=== PATIENT | female | born 1985 | race Caucasian/White ===

== ENCOUNTER → 2016-06-06 | Outpatient (CLI) | payer BC ==
[~2016-06-06] MED LIST: PRENTAB65 PO
[2016-06-06 21:15] LABS: GTGD 50 Grams
== END | disposition home or self-care (01) ==
LOC: C.LAB1850 15:01
PROVIDERS: ATTEND Obstetrics & Gynecology
DX: Z34.01 Encounter for supervision of normal first pregnancy, first trimester (principal)

== ENCOUNTER → 2016-08-29 | Outpatient (CLI) | payer BC ==
[2016-08-29 15:26] LABS: URINE APPEARANCE CLOUDY (CLEAR); URINE BILIRUBIN NEG (NEG); URINE COLOR YELLOW; URINE EPITHELIAL CELL AUTO 20-30 /lpf (0-5); URINE NITRITE NEG (NEG); URINE PH 7.5 (4.5-7.5); URINE SPECIFIC GRAVITY 1.018 (1.000-1.030); UROBILINOGEN NEG (NEG)
[2016-08-29 15:31] LABS: MANUAL MICROSCOPIC REQUIRED? NO; REVIEW REQ? NO
== END | disposition home or self-care (01) ==
LOC: C.LABSPEC 13:32
PROVIDERS: ATTEND Obstetrics & Gynecology
DX: Z34.92 Encounter for supervision of normal pregnancy, unspecified, second trimester (principal)

== ENCOUNTER → 2016-08-29 | Outpatient (CLI) | payer BC ==
[2016-08-29 13:47] LABS: GTGD 50 Grams
== END | disposition home or self-care (01) ==
LOC: C.LAB1850 10:22
PROVIDERS: ATTEND Obstetrics & Gynecology
DX: Z34.03 Encounter for supervision of normal first pregnancy, third trimester (principal)

== ENCOUNTER → 2016-09-06 | Outpatient (CLI) | payer BC | END | disposition home or self-care (01) | LOC: C.LAB1850 07:04 | PROVIDERS: ATTEND Obstetrics & Gynecology | DX: O28.1 Abnormal biochemical finding on antenatal screening of mother (principal) ==

== ENCOUNTER 2016-11-07 07:18 | Inpatient (IN) | payer BC ==
[~2016-11-07] VITALS: Ht 160 cm; Wt 110.0 kg
[2016-11-07] MEDS ORDERED: LACTATED RINGER'S 1000ML 1,000 ML IV PRN (07:56)
[2016-11-07 08:19] VITALS: BMI 43.0
[2016-11-07] MEDS ORDERED: PRENTAB65 PO (08:22)
[2016-11-07 08:30] LABS: HEMATOCRIT 35.3 % (37-47); MEAN CELL VOLUME 86.5 fL (80-100); MEAN CORPUSCULAR HEMOGLOBIN 28.7 pg (25-34); MEAN CORPUSCULAR HGB CONC 33.1 g/dl (32-36); MEAN PLATELET VOLUME 9.6 fL (7.4-10.4); PLATELET COUNT 262 K/uL (130-400); RED BLOOD COUNT 4.08 M/uL (4.2-5.4); WHITE BLOOD COUNT 10.34 K/uL (4.8-10.8)
[2016-11-07] MEDS: LACTATED RINGER'S 1000ML 1,000 ML IV SCH ×2 (08:50→16:50)
--- NOTE | 2016-11-07 08:54 | Medical Student: [facility] ---
Med Student History & Physical Date of Service Nov 07, 2016. Chief Complaint Check Rupture History of Present Illness Source: patient Maria A is a 30-year-old with an MARIPOSA of 11/21/16 by LMP of 02/15/2016 who presents this morning at 38 weeks gestational age due to SROM. At approximately 0545 she felt her water break. She denies vaginal bleeding and reports movements and some small contractions. Yesterday she was seen in the office for bloody mucus over the weekend. She is planning on receiving an epidural today. Maria A is obese (BMI 43) but otherwise her has had an unremarkable course. 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 Menses typically last for 5 days and is characterized as having a moderate flow. Cycles last 28 days. Pt has a hx of OCP use, which was discontinued in December 2015 when deciding to conceive. She has no history of STIs. Her last Pap smear was in April 2016 at 7+8 wks GA revealing LGSIL. A colposcopy at 14 weeks was negative. Her next colposcopy will be at 6 weeks . Past Medical History Maria A has no chronic conditions that she manages. Her only medication prior to was the OCP but throughout , she has only taken vitamins. Past Surgical History Negative for any surgeries. Family History Maternal aunt has a hx of breast cancer. Maternal grandmother has a hx of NE. Father has hypertrophic cardiomyopathy and brother is prediabetic. 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 She lives in [place] with her . Smoking Status: Never Smoker Smokeless Tobacco Use: No Alcohol Use: occasionally (one drink a month prior to , no EtOH during ) Drug Use: none Marital Status: Housing status: lives with significant other Occupational Status: employed Allergies Coded Allergies: No Known Allergies (Unverified , 11/07/16) Home Medications Multivit-Min W/Fe-Fa (), 1 TAB PO DAILY Review of Systems Constitutional: No fever, No chills Eyes: No worsening of vision Respiratory: No shortness of breath Cardiovascular: No chest pain Abdomen: No nausea, No vomiting, No diarrhea, No constipation Genitourinary - Female: No dysuria Physical Exam General Appearance: WD/WN, no apparent distress Respiratory/Chest: chest non-tender, lungs clear, normal breath sounds, no respiratory distress Cardiovascular: regular rate, rhythm, no edema, no gallop, no murmur Abdomen / GI: normal bowel sounds, soft Fundal Height: 46 cm Extremities: normal inspection, no calf tenderness Maria A was alert and awake during the exam. She was lying comfortably in bed and was in no acute distress. Auscultation of the heart revealed no murmurs, gallops, or rubs. Lungs were clear to auscultation bilaterally. Abdominal exam revealed a gravid, soft, nontender uterus. Fundus measured 46 cm. +FHTs. Estimated weight is 8 lbs. Infant is vertex. Per Dr. Bruno, pelvic exam revealed a cervix that is 1/50/-2. Neuro exam revealed 2/4 DTRs bilaterally with no clonus. Monitoring External Monitor: Baseline heart rate of 125 BPM. Moderate variability. Accels present. Absent decels. Tocodynamometer: Contractions occur every 5 minutes. Laboratory Results 11/07/16 08:11 Test 11/07/16 08:11 11/07/16 08:28 Red Blood Count 4.08 M/uL (4.2-5.4) Mean Corpuscular Volume 86.5 fL (80-100) Mean Corpuscular Hemoglobin 28.7 pg (25-34) Mean Corpuscular Hemoglobin Concent 33.1 g/dl (32-36) RDW Standard Deviation 41.4 fL (36.4-46.3) RDW Coefficient of Variation 12.9 % (11.5-14.5) Mean Platelet Volume 9.6 fL (7.4-10.4) Assessment and Plan Maria A is a 30-year-old female with an MARIPOSA of 11/21/16 by LMP of 02/15/16 who presented at 38 weeks GA for SROM. Her course has been unremarkable. She plans on receiving an epidural. O+, Ab-, rubella immune, GBS positive. heart tracing category I. Expectant management for now. Continue with external heart monitor and tocodynamometer.
[2016-11-07] MEDS ORDERED: PENICILLIN G POTASSIUM IV 6 MU in DEXTROSE 5% 250ML 250 ML IV ONE (09:00)
[2016-11-07 10:08] VITALS: Ht 160 cm; Wt 110.0 kg
[2016-11-07] MEDS ORDERED: EpHEDrine SULFATE INJ 50 MG/ML AMP ONE (12:33)
[2016-11-07] MEDS ORDERED: BUPIVACAINE 0.25% 30 ML VIAL ONE (12:33)
[2016-11-07] MEDS ORDERED: LACTATED RINGER'S 1000ML 500 ML IV PRN ×2 (12:34→13:44)
[2016-11-07] MEDS ORDERED: ONDANSETRON INJ 2 MG/ML 2 ML VIAL IV STA (12:34)
[2016-11-07] MEDS ORDERED: FENTANYL 2MCG/ML ROPIV 1.25MG/ML 100ML BAG EPI ONE (12:34)
[2016-11-07] MEDS ORDERED: FENTANYL CITRATE INJ 50 MCG/1 ML 2 ML VIAL ONE (12:35)
[2016-11-07] MEDS ORDERED: OXYTOCIN 30 UNITS/500ML NSS IV PRN ×2 (12:45→23:15)
[2016-11-07] MEDS: PENICILLIN G POTASSIUM IV 3 MU in DEXTROSE 5% 100ML 100 ML IV PRN ×3 (12:51→21:05)
[2016-11-07] MEDS ORDERED: NALOXONE HCL INJ 1 MG in SODIUM CHLORIDE 0.9% 1000ML 1,000 ML IV PRN ×4 (13:44)
[2016-11-07] MEDS ORDERED: ONDANSETRON INJ 2 MG/ML 2 ML VIAL IV PRN (13:45)
[2016-11-07] MEDS ORDERED: NALOXONE HCL INJ 0.4 MG/1 ML VIAL/CARP IV PRN (13:45)
[2016-11-07] MEDS ORDERED: PROMETHAZINE HCL INJ 25 MG in SODIUM CHLORIDE 0.9% 50ML 50 ML IV PRN (13:45)
[2016-11-07] MEDS ORDERED: DiphenhydrAMINE HCL 50 MG/ML VIAL IV PRN (13:45)
[2016-11-07] MEDS ORDERED: EpHEDrine SULFATE INJ 50 MG/ML AMP IV PRN (13:45)
[2016-11-07] MEDS ORDERED: NALBUPHINE HCL INJ 10 MG/ML AMP IV PRN (13:45)
[2016-11-07] MEDS ORDERED: TERBUTALINE SULFATE 1 MG/ML VIAL SQ ONE (18:00)
[2016-11-07] MEDS: FENTANYL 2MCG/ML ROPIV 1.25MG/ML 100ML BAG EPI PRN ×3 (19:04→22:58)
[2016-11-07] MEDS ORDERED: DIPHTHERIA/TETANUS/PERTUSSIS 0.5 ML SYR/VIAL IM. ONE (23:15)
[2016-11-07] MEDS ORDERED: ACETAMINOPHEN 325 MG TAB PO PRN (23:15)
[2016-11-07] MEDS ORDERED: BENZOCAINE 20% AER SPR 82.5 GM CAN EXT PRN (23:15)
[2016-11-07] MEDS ORDERED: HYDROCORTISONE ACETATE 25 MG SUPP PR PRN (23:15)
[2016-11-07] MEDS ORDERED: SUPERCREAM 0.870 % 15GM JAR EXT PRN (23:15)
[2016-11-07] MEDS ORDERED: LANOLIN OINT EXT PRN ×2 (23:15)
[2016-11-07] MEDS ORDERED: ACETAMINOPHEN/CODEINE 300/30MG TAB PO PRN ×2 (23:15)
--- NOTE | 2016-11-07 23:16 | Vaginal Delivery Summary ---
Vaginal Delivery Summary Patient dilated to complete and pushed to deliver a viable male Apgars 8 and 9 via over a small second-degree perineal laceration. Anterior shoulder delivered and then mouth and nose bulb suctioned at the perineum. Remainder of shoulders and body delivered with ease. Infant vigorous and crying at . Cord clamped at approximately 30 seconds of life. Infant to maternal abdomen and cord doubly clamped and cut. Placenta delivered spontaneously and intact, three-vessel cord. Hemostasis achieved with dilute Pitocin and uterine massage. Cervix and sulci intact. Laceration repaired in the routine fashion using 3-0 Vicryl. EBL 300 cc. Mother and baby stable in recovery.
[2016-11-08] VITALS (7 sets, daily range): BP systolic 114–137; BP diastolic 71–82; PULSE 70–88; TEMP 36.7–36.8; O2SAT 97–98
[2016-11-08] MEDS: OXYTOCIN INJ 20 UNITS in LACTATED RINGER'S 1000ML 1,000 ML IV SCH ×2 (00:43→10:31)
[2016-11-08] MEDS: IBUPROFEN 600 MG TAB PO PRN ×4 (00:45→17:27)
--- NOTE | 2016-11-08 01:17 | Anesthesia Procedure Note ---
Anesthesia Epidural Removal Nt Date & Time Nov 08, 2016 at 01:17 Vital Signs Pain Intensity: 2.0 Notes Mental Status: alert / awake / arousable, participated in evaluation Nausea / Vomiting: adequately controlled Pain: adequately controlled Airway Patency, RR, SpO2: stable & adequate BP & HR: stable & adequate Hydration State: stable & adequate Neuraxial Anesthesia: was administered Anesthetic Complications: no major complications apparent, pt satisfied with anesthetic care Epidural: removed without complications, with tip intact
--- NOTE | 2016-11-08 06:51 | OB/GYN Progress Note ---
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 Subjective conversation w/ patient, conversation w/ family, physical exam, chart review, lab review Ambulation: limited ambulation (to bathroom only) Voiding: no voiding problems Diet Tolerance: Regular Diet Lochia: Moderate (denies clots) Feeding Type: Breast Feeding Pain: Denies pain. Notes: No gas or BM yet. Review of Systems Constitutional: No fever, No chills Respiratory: No cough, No shortness of breath Cardiac: No chest pain Abdomen: No pain, No nausea, No diarrhea, No constipation Says the upper right thigh feels "heavy" but denies distal RLE sx or movement difficulties. Objective Vital Signs Date Time Temp Pulse Resp B/P (MAP) Pulse Ox O2 Delivery O2 Flow Rate FiO2 11/08/16 03:40 36.7 72 20 123/71 (88) 97 Room Air 11/08/16 02:00 36.8 76 20 126/74 (91) 98 Room Air 11/08/16 02:00 98 Room Air Physical Exam General Appearance: WELL-APPEARING, WD/WN, NO APPARENT DISTRESS Respiratory/Chest: lungs clear, normal breath sounds Cardiovascular: regular rate, rhythm, no murmur Abdomen: normal bowel sounds, non tender, soft Fundus: Firm, Relation to Umbilicus (Approx 1 finger down) Extremities: normal range of motion, non-tender, no calf tenderness, + pedal edema (1+ bilaterally) Laboratory Results Last 24 Hours Test 11/07/16 08:11 11/07/16 08:28 White Blood Count 10.34 K/uL Red Blood Count 4.08 M/uL Hemoglobin 11.7 g/dL Hematocrit 35.3 % Mean Corpuscular Volume 86.5 fL Mean Corpuscular Hemoglobin 28.7 pg Mean Corpuscular Hemoglobin Concent 33.1 g/dl RDW Standard Deviation 41.4 fL RDW Coefficient of Variation 12.9 % Platelet Count 262 K/uL Mean Platelet Volume 9.6 fL Amniotic Fluid Protein POS Assessment and Plan Post- Day Number: 1 Continue Routine Care: 30yo s/p , now PPD #1 (delivered around 2300 on 06Jul). - Blood type O pos. GBS positive, s/p abx x2. Rubella immune. - Vital signs reviewed and stable. - Pain controlled with ibuprofen (minimal use). - Minimal leg swelling but no tenderness on calf palpation. Encourage ambulation. - Encourage breast feeding. - Hemoglobin: 11.7. Continue to monitor clinically. - Right lateral thigh "heavy" likely positional vs lingering from epidural. Will monitor. - Continue routine post-vaginal delivery care. - Pt agreed with above plan, all current questions answered. Reyes Stanley MD, PGY1 Electrical Calibrator Physician Supervision Note: I interviewed and examined the patient. Discussed with Dr. Stanley and agree with findings and plan as documented in the note. Any exceptions or clarifications are listed here: Patient doing well, ambulating, voiding and damari po. breast feeding. routine care. Documented By: Christine Oglesby Resident Tracking Resident Involvement: Resident Care Provided Care Provided: OB Delivery (morning rounds)
[2016-11-08] MEDS: DOCUSATE SODIUM 100 MG CAP PO SCH ×2 (08:04→19:19)
--- NOTE | 2016-11-09 06:37 | OB/GYN Progress Note ---
OSD CLERK Progress Note Date of Service Nov 09, 2016. Subjective conversation w/ patient, physical exam, chart review, lab review Ambulation: ambulating normally Voiding: no voiding problems Passing Gas: Yes (and (+) BM) Diet Tolerance: Regular Diet Lochia: Small Feeding Type: Breast Feeding Pain: Denies much pain Review of Systems Constitutional: No fever, No chills Respiratory: No cough, No shortness of breath Cardiac: No chest pain Abdomen: No nausea, No vomiting, No diarrhea Female : No dysuria Objective Vital Signs Date Time Temp Pulse Resp B/P (MAP) Pulse Ox O2 Delivery O2 Flow Rate FiO2 11/08/16 23:30 97 Room Air 11/08/16 23:30 36.7 78 20 114/75 (88) 97 Room Air 11/08/16 19:20 36.8 88 18 115/78 (90) 98 Room Air 11/08/16 15:55 36.7 79 18 137/79 (98) Room Air 11/08/16 15:30 Room Air 11/08/16 12:00 36.7 70 16 125/82 (96) 98 Room Air 11/08/16 08:00 Room Air 11/08/16 07:56 36.7 75 18 122/76 (91) Room Air Physical Exam General Appearance: WELL-APPEARING, WD/WN, NO APPARENT DISTRESS Respiratory/Chest: lungs clear, normal breath sounds Cardiovascular: regular rate, rhythm, no murmur Abdomen: normal bowel sounds, non tender, soft Fundus: Firm, Relation to Umbilicus (approx two down) Extremities: normal range of motion, non-tender, no calf tenderness, + pedal edema (1+ (B)) Assessment and Plan Post- Day Number: 2 Continue Routine Care: 31yo (birthday!) s/p , now PPD #2 (delivered around 2300 on 06Jul). - Blood type O pos. GBS positive, s/p abx x2. Rubella immune. - Vital signs reviewed and stable. - Pain controlled with minimal ibuprofen. - Minimal (B) feet swelling but no tenderness on calf palpation. Encourage ambulation. - Encourage breast feeding. - Hemoglobin: 11.7. Continue to monitor clinically. - Yesterday's right lateral thigh "heavy" feeling completely resolved. - Continue routine post-vaginal delivery care. - Pt agreed with above plan, all current questions answered. Reyes Stanley MD, PGY1 Fusion Juncture Grinder Tracking Resident Involvement: Resident Care Provided Care Provided: OB Delivery (morning rounds)
[2016-11-09 07:30] VITALS: BP 118/76; PULSE 80; TEMP 36.8
--- NOTE | 2016-11-09 08:11 | Discharge Instructions ---
Discharge Instructions Date of Service Nov 09, 2016. Admission Reason for Admission: Check Rupture Discharge Discharge Diagnosis / Problem: Discharge Goals Goal(s): Routine recovery after delivery Activity Recommendations Activity Limitations: per Instructions/Follow-up section . Instructions / Follow-Up Instructions / Follow-Up ACTIVITY RECOMMENDATIONS: * Gradual return to full activity over the next 2-3 weeks. * No lifting - nothing heavier than baby over the next 2-3 weeks. * Do not engage in vigorous exercise, sexual activity or sports until cleared by your physician. * Do not drive or operate any motorized equipment until cleared by your physician. * You may shower/bathe daily. MEDICATIONS: For discomfort or pain, you may use Acetaminophen (Tylenol), Ibuprofen (Advil), or Naproxen (Aleve) following the package directions. For constipation you may use Colace following the package directions. BREAST CARE: If you are not breast feeding: * Wear a supportive bra 24 hours a day for one to two weeks. * Avoid stimulating your breasts and nipples as much as possible during the first few weeks after delivery. * When taking a shower, have the warm water hit your back, not breasts. * When your breasts feel full, apply ice packs. Usually three to four times a day helps ease the discomfort. * Take a mild pain medication (Tylenol / Motrin) when you are uncomfortable. If breast feeding: * Use breast milk to lubricate nipples. Lansinoh cream may be used for sore nipples. You do not need to remove cream prior to breast feeding. If using a different brand of cream, check the label for directions regarding removal of cream prior to nursing. * Wear a supportive bra. * If having problems with breasts or breast feeding, call a enterprise resource planning consultant or your health care provider. EPISIOTOMY CARE: After delivery, if you have an episiotomy (stitches), the following steps will ease discomfort and aid healing. * For the first 24 hours after delivery, place ice packs next to your episiotomy to help reduce swelling. * After the first 24 hour-period, sitz baths, either portable or in the tub, are suggested. A shower with a shower arm sprayed over the episiotomy may be comforting. * Elvira care should be done after each voiding and bowel movement. Squirt warm water from a plastic bottle over the perineum (region of the body between the anus and urinary opening) and pat dry. * Use Dermoplast to ease discomfort. Shake container. [place] directly over the episiotomy. Place a Tucks on a clean sanitary pad next to your episiotomy. SPECIAL CARE INSTRUCTIONS: When you are discharged from the hospital, it is important for you to follow the instructions listed below: * During the first week at home, you should be able to care for yourself and your baby. In addition, the usual light household activities are encouraged. * Limit your activities to the way you feel. Do not try to clean the house or move furniture. Be sensible. * If you actively engage in sports and have done so up until the time of your delivery, you may resume these activities as soon as you feel able. This may take up to one month or even longer. Use good judgment. * Continue to take your vitamins for at least six weeks after the of your baby. * Your diet need not be limited unless you were on a special diet before your delivery. Breast-feeding mothers need around 2500 calories per day and at least 64-80 ounces of fluid per day (8 to 10 glasses). * You should eat foods from the four major food groups. Crash diets or fad diets are to be avoided. Eating lean meats, fresh fruits and vegetables, low-fat dairy products, high fiber foods and a regular exercise program, will help you get back to your pre- weight without putting your health at risk. * Constipation is sometimes a problem after delivery. Take a mild laxative as needed. If breast feeding, Milk of Magnesia is acceptable to use. You may use a suppository or Fleets enema if no episiotomy. * A daily shower or tub bath is suggested. Be sure to thoroughly and gently dry the perineum. * A bloody vaginal discharge will usually continue until around four weeks post . A small amount of bleeding may continue for as long as six weeks. Vaginal discharge changes from the bright red bleeding after delivery to pink then brownish and finally yellowish-pink before becoming white and disappearing. * Bleeding may increase with activity. Your first period may come in 4-8 weeks. If you are breast feeding, your period may be delayed even longer. * [place] (sex) can begin whenever both you and your partner feel comfortable and do not have any form of genital infection. It is recommended that you wait at least six weeks for internal and external healing to occur. If you have questions, please talk to your health care practitioner. A condom should be used to prevent infection and . * Foreplay, gentle intercourse and lubrication is very important the first several times to prevent pain. A water-based lubricant such as K-Y jelly or Astroglide may be used. * If you have RH negative blood and your baby is RH positive, you will receive RHOGAM by injection prior to discharge. The nurse will give you a card to keep with you that has the date and place that you received RHOGAM after delivery. * During your care, you had a Rubella screen done to check for the presence of rubella antibodies in your blood. If your test was negative, you will receive a Rubella vaccine prior to discharge. This vaccine may cause a fever, soreness at the injection site and flu-like symptoms. If these symptoms persist, notify your health care practitioner. is not advised for one month after a Rubella vaccine. * Verbalizes understanding of car seat law as reviewed with patient nursing. * Car Seat hand-out given and reviewed with patient by nursing. * Shaken baby information reviewed with patient by nursing. Call you doctor if: * Heavy bleeding (saturating several pads an hour) or passing clots the size of your fist. * A fever >101 degrees F (38.3 degrees C) on two occasions four hours apart and /or chills. * Unusual pain in the pelvic or vaginal areas. * "Baby Blues" lasting longer than two weeks. If you have any questions or concerns, call your health care practitioner at . FOLLOW UP VISIT: * Please call the office at to schedule a 6 week examination. It is important you keep this appointment. It is important for you to make arrangements for either yearly or twice yearly check-ups thereafter. Current Hospital Diet Patient's current hospital diet: Regular OB Diet Discharge Diet Recommended Diet: Regular OB Diet Pending Studies Studies pending at discharge: no Medical Emergencies . Who to Call and When: Medical Emergencies: If at any time you feel your situation is an emergency, please call 911 immediately. . Non-Emergent Contact Non-Emergency issues call your: Registered Representative . . "Provider Documentation" section prepared by Javier Zhang. . VTE Core Measure Inpt VTE Proph given/why not?: Treatment not indicated
[2016-11-09] MEDS: DOCUSATE SODIUM 100 MG CAP PO SCH (11:59)
[2016-11-09 15:30] VITALS: BP 138/93; PULSE 80; TEMP 36.7
[2016-11-09 17:17] VITALS: BP_DIAS 93; PULSE 80; TEMP 36.7
== END 2016-11-09 17:25 | disposition home or self-care (01) | DRG 775 ==
LOC: C.OPB 07:18 → C.LD 07:19 → C.OPB 07:58 → C.LD 07:58 → C.OBG 11-08 02:35
PROVIDERS: ADMIT Obstetrics & Gynecology; ATTEND Obstetrics & Gynecology
PROC: 10E0XZZ Delivery of Products of Conception, External Approach (ICD-10-PCS; principal; 2016-11-07)
PROC: 0KQM0ZZ Repair Perineum Muscle, Open Approach (ICD-10-PCS; principal; 2016-11-07)
DX: O70.1 Second degree perineal laceration during delivery (principal); Z22.330 Carrier of Group B streptococcus; Z37.0 Single live birth

== ENCOUNTER → 2016-12-19 | Outpatient (CLI) | payer BC | END | disposition home or self-care (01) | LOC: C.PAPS 10:06 | PROVIDERS: ATTEND Obstetrics & Gynecology | DX: Z01.419 Encounter for gynecological examination (general) (routine) without abnormal findings (principal) ==

== ENCOUNTER → 2017-01-17 | Outpatient (CLI) | payer BC | END | disposition home or self-care (01) | LOC: C.PATHSPEC 16:26 | PROVIDERS: ATTEND Obstetrics & Gynecology | DX: R87.612 Low grade squamous intraepithelial lesion on cytologic smear of cervix (LGSIL) (principal) ==

== ENCOUNTER → 2017-07-25 | Outpatient (CLI) | payer OTHER | END | disposition home or self-care (01) | LOC: C.PAPS 18:26 | PROVIDERS: ATTEND Obstetrics & Gynecology | DX: R87.610 Atypical squamous cells of undetermined significance on cytologic smear of cervix (ASC-US) (principal) ==

== ENCOUNTER 2019-07-13 04:23 | Inpatient (IN) ==
[2019-07-13] MEDS: LACTATED RINGER'S 1,000 ML IV PRN ×2 (05:30→07:15)
[2019-07-13] MEDS ORDERED: OXYTOCIN 30 UNITS/500 ML BAG IV PRN (05:31)
--- NOTE | 2019-07-13 05:41 | History & Physical Report ---
Date of Service July 13, 2019 Assessment & Plan (1) Normal labor: IUP at 39 weeks in active labor GBS negative requesting epidural analgesia anticipate vaginal History of Present Illness Primary Care Provider: Trisha High DO Patient is a 33 yo white female EDC 07/20/19 who presents with regular ctns for the last 3 hours. complicated by obesity & GDM diet controlled. GBS negative. No SPROM. Blood type O(+) Allergies Allergy/AdvReac Type Severity Reaction Status Date / Time No Known Drug Allergies Allergy Verified 07/06/19 15:13 Home Medications Home Medications Medication Instructions Recorded Confirmed Type -qkzu fum-folic ac-om3 PO 03/02/19 07/06/19 History acetone (urine) test #50 ea 05/19/19 07/06/19 Rx blood sugar diagnostic #120 ea 05/19/19 07/06/19 Rx blood-glucose meter #1 ea 05/19/19 07/06/19 Rx lancets #102 ea 05/19/19 07/06/19 Rx famotidine PO 07/06/19 07/06/19 History Patient History Medical History (Updated 07/13/19 @ 05:41 by Alesia Barnett MD, FACOG) Encounter for routine gynecological examination (Inactive) Gestational diabetes mellitus (GDM) affecting History of varicella Low grade squamous intraepithelial lesion (LGSIL) on cervical Pap smear (Inactive) Low-lying placenta in second trimester tip touches iOs at 20wk. Rescan at 32. Surgical History (Updated 12/04/18 @ 15:18 by Mari Echevarria) Status post colposcopy Family History (Updated 12/04/18 @ 15:20 by Mari Echevarria) Brother Drinking problem Diabetes Aunt Breast cancer Grandmother (Paternal) Multiple gestation Social History (Updated 12/04/18 @ 15:21 by Mari Echevarria) Preferred Language: Barbadian Communication Ability: Effective Hot Walker Required: No Beliefs That Will Affect Care: None marital status: Current Living Situation: Spouse and Other Current Living Situation Comment: son Other Information That Helps Us Care for You: No Feels Safe at Home: Yes Safety Concerns: Feels Safe At This Time Smoking Status: Never smoker Do You Dip or Chew Tobacco: No ; Second Hand Exposure: No ; Tobacco Cessation Education Requested by Patient: No Hx Alcohol Use: No Hx Substance Use: No Review of Systems All systems reviewed & are unremarkable except as noted in HPI & below Physical Exam Constitutional: WD/WN, vitals as above Respiratory: normal respiratory effort, lungs clear to auscultation Cardiovascular: RRR, no murmur, no edema Gastrointestinal (Abdomen): normal bowel sounds, soft, nontender, no hepatosplenomegaly Psychiatric: A+Ox3, euthymic affect Genitourinary: OB Exam Abdomen: + vertex and + regular contractions Manual OB Exam: + cervical dilation 4 cm, + cervical effacement 80% and + station -2 OB Exam Monitor Tracing: + external FHT monitor used, + external uterine monitor used, + category I and + normal FHT variability Results & Data Vital Signs (Past 12 Hours) Vital Signs Temp Pulse Resp BP 07/13/19 04:53 97.5 F L 84 20 118/89 07/13/19 04:43 84 118/89 07/13/19 04:40 97.5 F L 20 Coding Level of Care Code None Diagnoses Normal labor O80; Z37.9
[2019-07-13 05:52] LABS: Hematocrit (blood only) 35.6 % (37-47); Hemoglobin 11.5 g/dL (12.0-16.0); Mean Corpuscular Hemoglobin 28.5 pg (25-34); Mean Corpuscular Hgb Conc 32.3 g/dL (32-36); Mean Corpuscular Volume 88.3 fL (80-100); Platelet Count 242 K/uL (130-400); RDW Coefficient of Variation 13.3 % (11.5-14.5); RDW Standard Deviation 43.7 fL (36.4-46.3); Red Blood Count 4.03 M/uL (4.2-5.4); White Blood Count 10.95 K/uL (4.8-10.8)
[2019-07-13] MEDS ORDERED: fentaNYL citrate 100 MCG/2 ML VIAL ONE (05:55)
[2019-07-13] MEDS ORDERED: BUPIVACAINE 0.25% 30 ML VIAL ONE (05:56)
[2019-07-13] MEDS ORDERED: ePHEDrine sulfate 50 MG/ML AMP ONE (05:56)
[2019-07-13] MEDS ORDERED: fentaNYL 2MCG/ML ROPIV 1.25MG/ML 100 ML BAG EPI ONE (05:57)
[2019-07-13] MEDS ORDERED: ONDANSETRON INJ 2 MG/ML 2 ML VIAL IV PRN (06:44)
[2019-07-13] MEDS ORDERED: NALOXONE HCL 1 MG in SODIUM CHLORIDE 0.9% 1000ML 1,000 ML IV PRN (06:44)
[2019-07-13] MEDS ORDERED: NALOXONE HCL 0.4 MG/1 ML VIAL/CARP IV PRN (06:44)
[2019-07-13] MEDS ORDERED: NALBUPHINE HCL INJ 10 MG/ML AMP IV PRN (06:44)
[2019-07-13] MEDS ORDERED: fentaNYL 2MCG/ML ROPIV 1.25MG/ML 100 ML BAG EPI PRN (06:44)
[2019-07-13] MEDS ORDERED: DiphenhydrAMINE HCL 50 MG/ML VIAL IV PRN (06:44)
[2019-07-13] MEDS ORDERED: ePHEDrine sulfate 50 MG/ML AMP IV PRN (06:44)
--- NOTE | 2019-07-13 06:49 | Anesthesiology Consultation ---
Date of Service July 13, 2019 Assessment & Plan Chart Review Chart Review: Patient NOT seen in Pre Admission Testing and Acceptable Risk for Labor Epidural Consults Requested none ASA ASA2 Proposed Anesthesia Anesthesia Type: Labor Epidural and CSE Risk / Benefits Reviewed With: PT / POA / Parent / Guardian, Accepts Plan and Informed Consent Obtained History Height/Weight Height: 5 ft 3 in Weight: 113.398 kg Allergies Allergy/AdvReac Type Severity Reaction Status Date / Time No Known Drug Allergies Allergy Verified 07/06/19 15:13 Medications Home Medications Medication Instructions Recorded Confirmed Last Taken [id number] fum-folic ac-om3 1 tab PO DAILY 03/02/19 07/13/19 07/12/19 acetone (urine) test #50 ea 05/19/19 07/06/19 Unknown blood sugar diagnostic #120 ea 05/19/19 07/06/19 Unknown blood-glucose meter #1 ea 05/19/19 07/06/19 Unknown lancets #102 ea 05/19/19 07/06/19 Unknown famotidine 1 tab PO BID 07/06/19 07/13/19 07/12/19 Active Medications Generic Name Dose Route Start Last Admin Trade Name Freq PRN Reason Stop Dose Admin Lactated Ringer's 1,000 mls @ 125 mls/hr 07/13/19 05:31 07/13/19 06:01 Lr IV 07/15/19 05:30 125 mls/hr .Q8H PRN Infusion L&D Protocol Protocol NPO Date Last Intake of Fluids: 07/13/19 Time Last Intake of Fluids: 06:30 Date Last Intake of Solids: 07/12/19 Time Last Intake of Solids: 21:00 Past Medical History Medical History Encounter for routine gynecological examination (Inactive) Gestational diabetes mellitus (GDM) affecting History of varicella Low grade squamous intraepithelial lesion (LGSIL) on cervical Pap smear (Inactive) Low-lying placenta in second trimester tip touches iOs at 20wk. Rescan at 32. Exercise / Class Metabolic Activity II 4-5 Yardwork/Stairs/Walk up hill Past Family History Family History Brother Drinking problem Diabetes Aunt Breast cancer Grandmother (Paternal) Multiple gestation Past Surgical History Surgical History Status post colposcopy Past Anesthesia History No Hx of Anesthesia Complications and No Family Hx of Anesthesia Complications History of PONV No Hx of PONV and No Hx of Motion Sickness Social History Smoking Status: Never smoker Do You Dip or Chew Tobacco: No Hx Alcohol Use: No Hx Substance Use: No substance use type: does not use Review of Systems no chest pain or sob Physical Exam Vital Signs Last Vital Signs Temp 36.4 C L 07/13/19 04:53 Pulse 86 07/13/19 06:47 Resp 20 07/13/19 04:53 BP 118/89 07/13/19 04:53 Pulse Ox 94 07/13/19 06:47 ENMT Mouth: no TMJ abnormality Thyromental Distance: > or= 3.5 Finger Breadths Mallampati Class: II Neck normal visual inspection Respiratory normal respiratory effort Auscultation: lungs clear to auscultation bilaterally Cardiovascular Rate/Rhythm: regular rate and regular rhythm Musculoskeletal Spine: normal cervical ROM Neurologic moves all extremities Psychiatric Orientation: alert and oriented x 3 Testing Laboratory Results 07/13/19 05:39
--- NOTE | 2019-07-13 09:39 | Delivery Summary ---
Vaginal Delivery Summary Date of Service July 13, 2019 Vaginal Delivery Summary DIAGNOSES: 1. Maddox intrauterine at 39wk gestation. 2. Spontaneous onset of labor. 3. Group B Streptococcus Neg 4. Gestational DM, diet controlled. PROCEDURE: Spontaneous vaginal delivery and repair of second degree laceration. SURGEON: Aletha Modi MD. OPHTHALMOLOGIST: None. ESTIMATED BLOOD LOSS: 350 mL. COMPLICATIONS: None. PLACENTA: Spontaneous and intact with a 3-vessel cord. DISPOSITION: Stable to labor and delivery. DESCRIPTION: The patient pushed well and brought the head to in OA position. The 's head was allowed to deliver with contraction force and no further active pushing, with the perineum protected during this time. The shoulders delivered easily with a maternal pushing effort. There was no nuchal cord. The left shoulder was anterior. The shoulders and body delivered without any difficulty, and the infant was placed on the maternal abdomen. It was vigorous and moving all extremities, and making respiratory efforts. The cord was doubly clamped by the MD and then cut by the FOB. The placenta delivered spontaneously and was noted to be intact and with a 3VC. The cervix, vagina and perineum were examined and were found to have a second degree laceration, which was repaired in the usual manner with vicryl including a crown stitch to rebuild the perineal body. The fundus was firm and lochia minimal immediately after delivery.
[2019-07-13] MEDS ORDERED: SUPERCREAM 0.870% 15 GM JAR EXT PRN (09:42)
[2019-07-13] MEDS ORDERED: BENZOCAINE 20% AER SPR 82.5 GM CAN EXT PRN (09:42)
[2019-07-13] MEDS ORDERED: ACETAMINOPHEN 325 MG TAB PO PRN (09:42)
[2019-07-13] MEDS ORDERED: DIPHTHERIA/TETANUS/PERTUSSIS 0.5 ML SYR/VIAL IM ONE (09:42)
[2019-07-13] MEDS ORDERED: HYDROCORTISONE ACETATE 25 MG SUPP PR PRN (09:42)
[2019-07-13] MEDS ORDERED: OXYCODONE/ACETAMINOPHEN 5mg/325mg TAB PO PRN (09:42)
--- NOTE | 2019-07-13 09:59 | Anesthesia Procedure Note ---
Date of Service July 13, 2019 Anesthesia Post Epidural Note Vital Signs Vital Signs: Temp Pulse Resp BP Pulse Ox 36.9 C 91 H 20 131/69 97 07/13/19 09:22 07/13/19 09:52 07/13/19 09:37 07/13/19 09:52 07/13/19 09:24 Notes Mental Status: alert / awake / arousable and participated in evaluation Nausea / Vomiting: adequately controlled Pain: adequately controlled Airway Patency, RR, SpO2: stable & adequate BP & HR: stable & adequate Hydration State: stable & adequate Neuraxial Anesthesia: was administered and sensory block is resolving Anesthetic Complications: no major complications apparent Epidural: Removed without complications and With tip intact
[2019-07-13] MEDS: IBUPROFEN 600 MG TAB PO PRN ×2 (11:37→20:21)
[2019-07-13] MEDS ORDERED: FAMOTIDINE 20 MG TAB PO SCH (21:00)
[2019-07-14 06:20] LABS: Hematocrit (blood only) 33.3 % (37-47); Hemoglobin 10.7 g/dL (12.0-16.0); Mean Corpuscular Hemoglobin 28.6 pg (25-34); Mean Corpuscular Hgb Conc 32.1 g/dL (32-36); Mean Platelet Volume 9.7 fL (7.4-10.4); Platelet Count 209 K/uL (130-400); RDW Coefficient of Variation 13.7 % (11.5-14.5); RDW Standard Deviation 44.6 fL (36.4-46.3); Red Blood Count 3.74 M/uL (4.2-5.4); White Blood Count 9.36 K/uL (4.8-10.8)
--- NOTE | 2019-07-14 06:50 | Obstetrical Progress Note ---
Date of Service <Indy Pruett - Last Filed: 07/14/19 06:53> July 14, 2019 Assessment & Plan <Indy Pruett - Last Filed: 07/14/19 06:53> (1) Encounter for care and examination after delivery: - PPD #1. - This is the patient's second child, will discharge today as per patient's request; both mom and baby are doing well this morning and no barriers to discharge. - Following discharge will have appointment in 6 weeks. - Went over discharge instructions and answered all patient questions. Subjective <Indy Pruett - Last Filed: 07/14/19 06:53> 33 yo ; PPD # 1 following vaginal delivery at 39 weeks; doing well this AM; no abdominal cramping/pain; voiding well; tolerating meals overnight, able to ambulate some within the room. is going well with good latch. Desires discharge today. Vitals stable overnight. Review of Systems Constitutional: denies fever, chills, sweats, headache Respiratory: denies SOB, difficulty breathing Cardiac: denies CP, chest palpitations, chest pressure Breast: denies breast pain : denies dysuria Physical Exam <Indy Pruett - Last Filed: 07/14/19 06:53> General: patient is alert and oriented, in NAD Cardiac: +S1/S2, no murmurs rubs or gallops Respiratory: lungs CTA b/l, anteriorly and posteriorly, no wheezes rales or rhonchi, no increased work of breathing, symmetric chest rise, no respiratory distress Abdomen: soft, NT, +bowel sounds Uterus: uterine fundus firm, palpable below the level of the umbilicus Lower Extremities: no LE edema or swelling, no deep calf pain, Ashlee's sign negative b/l Results & Data <Indy Pruett - Last Filed: 07/14/19 06:53> Vital Signs (Past 12 Hours) Vital Signs Temp Pulse Resp BP Pulse Ox 07/14/19 03:26 36.7 C 85 18 127/71 96 07/13/19 23:35 36.8 C 85 18 128/81 97 07/13/19 20:15 36.8 C 87 18 123/76 Laboratory Results Laboratory Results - last 24 hr 07/13/19 07/14/19 07:30 06:02 WBC 9.36 RBC 3.74 L Hgb 10.7 L Hct 33.3 L MCV 89.0 MCH 28.6 MCHC 32.1 RDW Std Deviation 44.6 RDW Coeff of Matt 13.7 Plt Count 209 MPV 9.7 POC Glucose 112 H Medications Administered Current Medications Acetaminophen (Tylenol) 650 mg PO Q6H PRN PRN Reason: Pain/DANIEL/Fever Stop: 08/12/19 09:41 Benzocaine (Dermoplast Pain Relieving Nenzel) 1 appln EXT PRN PRN PRN Reason: Perineal Discomfort Stop: 08/12/19 09:41 Last Admin: 07/13/19 11:37 Dose: 82.5 appln Documented by: Bisacodyl (Dulcolax) 5 mg PO 2000 [facility] Stop: 07/14/19 20:01 Cocaine HCl (Supercream 0.870%) 1 gm EXT BID PRN PRN Reason: Hemorrhoidal Inflammation Stop: 07/27/19 09:41 Last Admin: 07/13/19 20:21 Dose: 15 gm Documented by: Famotidine (Pepcid) 20 mg PO BID [facility] Stop: 08/12/19 20:59 Last Admin: 07/13/19 21:01 Dose: Not Given Documented by: Hydrocortisone (Anusol Hc) 25 mg GA BID PRN PRN Reason: Hemorrhoidal Inflammation Stop: 08/12/19 09:41 Lactated Ringer's (Lr) 1,000 mls @ 125 mls/hr IV .Q8H PRN; Protocol PRN Reason: L&D Protocol Stop: 07/15/19 05:30 Last Infusion: 07/13/19 09:15 Dose: Infused Documented by: Oxytocin (Pitocin) 30 units in 500 mls @ 333.333 mls/hr IV .Q1H30M PRN; Protocol PRN Reason: Bleeding Control Stop: 08/12/19 05:30 Last Titration: 07/13/19 11:18 Dose: Infused Documented by: Ibuprofen (Motrin) 600 mg PO Q4H PRN PRN Reason: Pain/DANIEL/Cramping/Fever Stop: 08/12/19 09:41 Last Admin: 07/13/19 20:21 Dose: 600 mg Documented by: Oxycodone/Acetaminophen (Percocet 5mg/325mg) 1 tab PO Q4H PRN PRN Reason: Pain not relieved by... Stop: 07/27/19 09:41 Prenat Multivit/Flowood/Iron/Folic Ac ( Vitamin) 1 tab PO DAILY@08 KIERA Stop: 08/13/19 07:59 <Aletha Modi MD - Last Filed: 07/14/19 07:02> Co-Signing Physician Notes I have reviewed the resident's note and examined the patient myself, and agree with the note above. Resident Activity Tracking <Indy Pruett DO - Last Filed: 07/14/19 06:53> Resident Involvement: Resident Care Provided Care Provided: OB Delivery
[2019-07-14] MEDS: IBUPROFEN 600 MG TAB PO PRN (07:56)
[2019-07-14] MEDS ORDERED: PRENATAL VITAMIN 1 TAB PO SCH (08:00)
[2019-07-14] MEDS ORDERED: bisacodyL 5 MG TABEC PO SCH (20:00)
== END 2019-07-14 12:55 | disposition home or self-care (01) | DRG 807 ==
LOC: OPB 04:23 → 4S1 04:25 → 4S2 11:35